=== PATIENT | female | born 1935 | race Caucasian/White ===

== ENCOUNTER 2019-08-22 06:24 | Inpatient (IN) | payer MEDICARE ==
[~2019-08-22] VITALS: Ht 165.1 cm; Wt 63.7 kg
[~2019-08-22 06:24] MED LIST: ALBU90OI INH; ATEN25 PO; AZIT250 PO; CODACE30 PO; ESTR2 PO; HYDGUAL120 PO; LEVSOD125 PO; LEVSOD25; LOVA20 PO; PARO10; SULTRISS PO
[2019-08-22 07:18] LABS: BASOPHILS ABSOLUTE AUTO 0.02 K/mm3 (0.00-0.23); BASOPHILS PERCENT AUTO 0 % (0-2); EOSINOPHILS ABSOLUTE AUTO 0.07 K/mm3 (0.00-0.68); EOSINOPHILS PERCENT AUTO 1 % (0-6); Hematocrit 40.7 % (33.0-51.0); Hemoglobin 12.6 g/dL (11.5-16.0); IMMATURE GRAN PERCENT AUTO 0 % (0-1); LYMPHOCYTES ABSOLUTE AUTO 0.68 K/mm3 (0.84-5.20); LYMPHOCYTES PERCENT AUTO 13 % (21-46); MONOCYTES ABSOLUTE AUTO 0.31 K/mm3 (0.16-1.47); MONOCYTES PERCENT AUTO 6 % (4-13); Mean Corpuscular HGB 28.6 pg (26.0-34.0); Mean Corpuscular Volume 92 fL (80-100); Mean Platelet Volume 10.3 fL (9.1-12.4); NEUTROPHILS ABSOLUTE AUTO 4.06 K/mm3 (1.96-9.15); NEUTROPHILS PERCENT AUTO 79 % (41-73); Platelet Count 167 K/mm3 (150-400); RDW Coefficient Variation 14.6 % (11.7-14.2); RDW Standard Deviation 49.8 fL (35.1-46.3); Red Blood Cell Count 4.41 M/mm3 (3.80-5.20); White Blood Cell Count 5.14 K/mm3 (4.00-11.30)
[2019-08-22 07:27] LABS: Alanine Aminotransfer (ALT/SGP 63 U/L (12-78); Albumin, Blood 3.8 g/dL (3.4-5.0); Albumin/Globulin Ratio 1.1 (0.8-1.8); Alk Phos 83 U/L (50-136); Anion Gap 5 mmol/L (6-16); Aspartate Aminotrans (AST/SGOT 78 U/L (12-37); Bilirubin, Total 0.6 mg/dL (0.1-1.0); Blood Urea Nitrogen 27 mg/dL (8-24); Bun/Creatinine Ratio 30.8 (12.0-20.0); CO2, Blood 29 mmol/L (21-32); Calcium, Blood 8.8 mg/dL (8.5-10.1); Chloride, Blood 108 mmol/L (98-108); Creatinine, Blood 0.88 mg/dL (0.40-1.00); Globulin, Blood 3.5 g/dL (2.2-4.0); Glomerular Filtration Rate >60 (60-); Glucose, Blood 117 mg/dL (70-99); Potassium, Blood 4.5 mmol/L (3.5-5.5); Sodium, Blood 142 mmol/L (136-145); Total Protein, Blood 7.3 g/dL (6.4-8.2)
[2019-08-22 09:17] LABS: Magnesium, Blood 2.1 mg/dL (1.6-2.4)
[2019-08-22 09:19] LABS: Thyroid Stimulating Hormone 30.3 uIU/mL (0.360-4.800)
[2019-08-22 10:02] LABS: Free Thyroxine 1.02 ng/dL (0.70-1.60)
[2019-08-22 10:03] LABS: Triiodothyronine, Free 1.32 pg/mL (2.18-3.98)
--- NOTE | 2019-08-22 10:34 | NUR ---
Echocardiogram completed. Stat Overread requested.
--- NOTE | 2019-08-22 11:21 | NUR ---
Called to meet with pt in ER. pt alert oreinted to place time. pt unable to recall her street. She rents a home in [place] and has a dog. 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 We slowly reviewed her qulaity of life and if she would want to seek a consult on getting surgery. She stated she has it looked at treament before. She has not went to a doctor in [facility] and did not want surgery. She spoke of getting older and how tough it is. Se is well aware that she is loosing her memory. We had some diversion and spoke of her youth and growing up in [facility]. We also share stores of the adventures of [employer] in the medical profession. Pt speaks in four to five words with some wheezing and mild labor. She has to void frequently and gets aggitated. Will attempt to get her to accept catheter. Called Ralph Caballero regarding our conversation. relayed to him that she needs support in making this decision and discussed hospice. Ralph states he is her executer and her support person. He states she made a POLST and would not want life support or surgery and wants DNR. He states she need caregiver help or placement. will notify care managers.
--- NOTE | 2019-08-22 12:13 | NUR ---
ARRIVAL TO ICU PT. ARRIVES ON 2L NC. PT. ALERT AND ORIENTED UPON ARRIVAL ABLE TO TRANSER SELF TO ICU BED WITH OUT DIFFICULTY. NO SOB NOTED, PT DENIES DYSPNEA. VSS UPON ARRIVAL. PT. UP TO BEDSIDE COMMODE UPON ARRIVAL TO VOID, 400CC DOCUMENTED. PT DENIES PAIN UPON ARRIVAL. NON PITTING EDEMA 2+ TO BILAT LE. PT. SALINE LOCKED. CALL LIGHT IN REACH, BED IN LOW POSITION. BED ALARM ON FOR SAFETY.
--- NOTE | 2019-08-22 12:53 | NUR ---
CARE ASSUMED CARE ASSUMED AT THIS TIME. PT IN NO ACUTE DISTRESS AT THIS TIME. SPO2 95% ON 2L NC.
[2019-08-22 16:21] LABS: Alanine Aminotransfer (ALT/SGP 52 U/L (12-78); Albumin, Blood 3.5 g/dL (3.4-5.0); Albumin/Globulin Ratio 1.1 (0.8-1.8); Alk Phos 65 U/L (50-136); Anion Gap 2 mmol/L (6-16); Aspartate Aminotrans (AST/SGOT 51 U/L (12-37); Bilirubin, Total 0.9 mg/dL (0.1-1.0); Blood Urea Nitrogen 27 mg/dL (8-24); CO2, Blood 32 mmol/L (21-32); Calcium, Blood 8.8 mg/dL (8.5-10.1); Chloride, Blood 105 mmol/L (98-108); Creatinine, Blood 0.87 mg/dL (0.40-1.00); Globulin, Blood 3.3 g/dL (2.2-4.0); Glomerular Filtration Rate >60 (60-); Glucose, Blood 100 mg/dL (70-99); Potassium, Blood 4.4 mmol/L (3.5-5.5); Sodium, Blood 139 mmol/L (136-145); Total Protein, Blood 6.8 g/dL (6.4-8.2)
--- NOTE | 2019-08-22 17:23 | NUR ---
TRANSFER REPORT CALLED AND GIVEN TO RG ON 3RD FLOOR. PT TO BE TRANSFERRED TO ROOM 306.
--- NOTE | 2019-08-22 18:27 | NUR ---
ARRIVES TO FLOOR ABOUT 1735 VIA W/C FROM ICU. ALERT. ORIENTED. NO OXYGEN. SPEAKS IN COMPLETE SENTENCES. BLE EDEMA +1 TO +2 W/LEFT >RIGHT. LUNGS WHEEZEY TO COARSE RLL WITH REST CLEAR T/O. TELE ON AND SHOWING SB IN 50'S PER MARKO. MULTIPLE SMALL SCRATCHES TO BACK. SITS UP IN CHAIR FOR DINNER. STEADY GAIT IN ROOM. ADVISED TO LET US KNOW IF HAS TO USE REST ROOM SO WE CAN MAKE SURE DOES NOT FALL. HAT ON TOILET TO MEASURE OUTPUT. ABLE TO MAKE NEEDS KNOWN. TM
--- NOTE | 2019-08-23 03:33 | NUR ---
SHIFT SUMMARY PATIENT HAD NO ACUTE CHANGES OBSERVED. AXOX 3 AND FORGETFUL AT TIMES. SBA TO BR. PIV REMAINS INTACT. ACADEMIC AFFAIRS DIRECTOR REPORTS SR 65 W/1ST DEGREE, BBB. DENIES PAIN, SOB, AND N/V. ON ROOM AIR. TAKES MEDICATION WHOLE WITH WATER. AFEBRILE. COOPERATIVE WITH CARE. CALL LIGHT IN REACH. BED IN LOWEST POSITION. WILL CONTINUE TO MONITOR UNTIL DAY SHIFT NURSE ASSUMES CARE.
[2019-08-23 05:07] LABS: BASOPHILS ABSOLUTE AUTO 0.01 K/mm3 (0.00-0.23); BASOPHILS PERCENT AUTO 0 % (0-2); EOSINOPHILS ABSOLUTE AUTO 0.13 K/mm3 (0.00-0.68); EOSINOPHILS PERCENT AUTO 3 % (0-6); Hematocrit 40.4 % (33.0-51.0); Hemoglobin 12.8 g/dL (11.5-16.0); IMMATURE GRAN ABSOLUTE AUTO 0.01 K/mm3 (0.00-0.10); IMMATURE GRAN PERCENT AUTO 0 % (0-1); LYMPHOCYTES ABSOLUTE AUTO 1.33 K/mm3 (0.84-5.20); LYMPHOCYTES PERCENT AUTO 32 % (21-46); MONOCYTES ABSOLUTE AUTO 0.42 K/mm3 (0.16-1.47); MONOCYTES PERCENT AUTO 10 % (4-13); Mean Corpuscular HGB 29.3 pg (26.0-34.0); Mean Corpuscular HGB Conc 31.7 g/dL (31.5-36.5); Mean Corpuscular Volume 92 fL (80-100); Mean Platelet Volume 10.3 fL (9.1-12.4); NEUTROPHILS ABSOLUTE AUTO 2.26 K/mm3 (1.96-9.15); NEUTROPHILS PERCENT AUTO 54 % (41-73); Platelet Count 158 K/mm3 (150-400); RDW Coefficient Variation 14.7 % (11.7-14.2); RDW Standard Deviation 49.9 fL (35.1-46.3); Red Blood Cell Count 4.37 M/mm3 (3.80-5.20); White Blood Cell Count 4.16 K/mm3 (4.00-11.30)
[2019-08-23 05:29] LABS: Albumin, Blood 3.6 g/dL (3.4-5.0); Albumin/Globulin Ratio 1.2 (0.8-1.8); Bun/Creatinine Ratio 28.4 (12.0-20.0); Calcium, Blood 8.6 mg/dL (8.5-10.1); Creatinine, Blood 0.95 mg/dL (0.40-1.00); Globulin, Blood 3.1 g/dL (2.2-4.0); Potassium, Blood 4.1 mmol/L (3.5-5.5); Total Protein, Blood 6.7 g/dL (6.4-8.2)
[2019-08-23] MEDS ORDERED: ACET325 PO (11:42)
[2019-08-23] MEDS ORDERED: ATOR20 PO (11:42)
[2019-08-23] MEDS ORDERED: CO Q10100 MG PO (11:43)
[2019-08-23] MEDS ORDERED: FURO20 PO (11:43)
[2019-08-23] MEDS ORDERED: METO25ER PO (11:44)
[2019-08-23] MEDS ORDERED: Prinivil10 MG PO (11:44)
--- NOTE | 2019-08-23 13:31 | NUR ---
DISCHARGE NOTE PT DISCHARGED AMBULATORY POV WITH FRIEND. KRISTOPHER Pizarro PALLIATIVE CARE SPOKE WITH PATIENT AND FRIEND PRIOR TO DISCHARGE ABOUT HOME HEALTH AND HOSPICE. IV DISCONTINUED INTACT. PT VERBALIZED UNDERSTANDING OF MEDICATIONS AND DISCHARGE INSTRUCTIONS AND PROVIDED WITH A PAPER RX FOR A HOME BP MONITOR. ENCOURAGED TO RETURN TO THE HOSPITAL OR SEEK MEDICAL ASSISTANCE IF SYMPTOMS RETURN OR WORSEN.
--- NOTE | 2019-08-23 16:03 | NUR ---
met with patient and her POA. plan is to discharge home on hospice. pt POA has used [facility] and requested their service. hospice liason notified.
== END 2019-08-23 13:28 | disposition hospice, home (50) | DRG 291 ==
LOC: ER 06:24 → MEDS 10:11 → PCU 10:11 → ICUE 10:11 → MEDS 11:40 → ICUE 15:31 → MEDS 17:29
PROVIDERS: Emergency Medicine; Nurse Practitioner Acute Care; ADMIT Internal Medicine
DX: I11.0 Hypertensive heart disease with heart failure (principal); J96.01 Acute respiratory failure with hypoxia; I50.9 Heart failure, unspecified; I71.2 Thoracic aortic aneurysm, without rupture; J44.9 Chronic obstructive pulmonary disease, unspecified; E89.0 Postprocedural hypothyroidism; I48.0 Paroxysmal atrial fibrillation; F41.1 Generalized anxiety disorder; F17.210 Nicotine dependence, cigarettes, uncomplicated; Z66 Do not resuscitate; Z88.0 Allergy status to penicillin; Z88.2 Allergy status to sulfonamides; Z51.5 Encounter for palliative care
CPT/HCPCS: 36415; 71046; 80053; 82550; 83735; 83880; 84439; 84443; 84481; 84484; 85025; 90686; 93005; 93010; 93306; 94640; 94760; 96374; 96375; 99285-25; G0008; J1650; J1940; J2060

== ENCOUNTER → 2020-02-21 | Outpatient (CLI) | payer MEDICARE, OTHER ==
[~2020-02-21] MED LIST changes: +ACET325 PO; +ATOR20 PO; +CO Q10100 MG PO; +FURO20 PO; +METO25ER PO; +Prinivil10 MG PO
[2020-02-21 19:53] LABS: Free Thyroxine 0.32 ng/dL (0.70-1.60)
[2020-02-21 20:25] LABS: Albumin, Blood 4.1 g/dL (3.4-5.0); Albumin/Globulin Ratio 1.4 (0.8-1.8); Bilirubin, Total 0.6 mg/dL (0.1-1.0); Bun/Creatinine Ratio 18.3 (12.0-20.0); Calcium, Blood 8.5 mg/dL (8.5-10.1); Creatinine, Blood 1.2 mg/dL (0.40-1.00); Globulin, Blood 2.9 g/dL (2.2-4.0); Potassium, Blood 3.9 mmol/L (3.5-5.5)
== END | disposition home or self-care (01) ==
LOC: LAB SHORT 17:15 → LAB 17:15
PROVIDERS: Internal Medicine Hematology & Oncology
DX: Z00.00 Encounter for general adult medical examination without abnormal findings (principal); E03.9 Hypothyroidism, unspecified; D51.8 Other vitamin B12 deficiency anemias; R41.3 Other amnesia
CPT/HCPCS: 80053; 82607; 82746; 84439; 84443

== ENCOUNTER 2021-04-28 20:01 | Emergency (ER) | payer MEDICARE ==
[~2021-04-28] VITALS: Ht 170.2 cm; Wt 59.0 kg
[2021-04-28 20:37] LABS: BASOPHILS ABSOLUTE AUTO 0.01 K/mm3 (0.00-0.23); BASOPHILS PERCENT AUTO 0 % (0-2); EOSINOPHILS ABSOLUTE AUTO 0.11 K/mm3 (0.00-0.68); EOSINOPHILS PERCENT AUTO 2 % (0-6); Hematocrit 35.4 % (33.0-51.0); Hemoglobin 11.6 g/dL (11.5-16.0); IMMATURE GRAN ABSOLUTE AUTO 0.02 K/mm3 (0.00-0.10); IMMATURE GRAN PERCENT AUTO 0 % (0-1); LYMPHOCYTES ABSOLUTE AUTO 0.74 K/mm3 (0.84-5.20); LYMPHOCYTES PERCENT AUTO 14 % (21-46); MONOCYTES PERCENT AUTO 9 % (4-13); Mean Corpuscular HGB 29.2 pg (26.0-34.0); Mean Corpuscular HGB Conc 32.8 g/dL (31.5-36.5); Mean Corpuscular Volume 89 fL (80-100); Mean Platelet Volume 10.3 fL (9.1-12.4); NEUTROPHILS PERCENT AUTO 75 % (41-73); Platelet Count 202 K/mm3 (150-400); RDW Coefficient Variation 14.4 % (11.7-14.2); RDW Standard Deviation 46.6 fL (35.1-46.3); Red Blood Cell Count 3.97 M/mm3 (3.80-5.20); White Blood Cell Count 5.48 K/mm3 (4.00-11.30)
[2021-04-28 20:58] LABS: Albumin, Blood 3.9 g/dL (3.4-5.0); Albumin/Globulin Ratio 1.1 (0.8-1.8); Bilirubin, Total 0.6 mg/dL (0.1-1.0); Bun/Creatinine Ratio 37.2 (12.0-20.0); Calcium, Blood 8.2 mg/dL (8.5-10.1); Creatinine, Blood 1.83 mg/dL (0.40-1.00); Globulin, Blood 3.7 g/dL (2.2-4.0); Potassium, Blood 4.5 mmol/L (3.5-5.5); Total Protein, Blood 7.6 g/dL (6.4-8.2); Troponin I 0.033 ng/mL (0.000-0.040)
[2021-04-28] MEDS ORDERED: LOVASTATIN20 MG PO (22:08)
[2021-04-28] MEDS ORDERED: BUME2 PO (22:08)
[2021-04-28] MEDS ORDERED: ATENOLOL25 MG PO (22:09)
== END 2021-04-29 00:43 | disposition home or self-care (01) ==
LOC: ER 20:01
PROVIDERS: Physician Assistant
DX: R55 Syncope and collapse (principal); Z79.899 Other long term (current) drug therapy
CPT/HCPCS: 36415; 70450; 71045; 80053; 84484; 85025; 93005; 93010; 99284-25; J7030

== ENCOUNTER 2021-09-01 00:42 | Inpatient (IN) | payer MEDICARE ==
[~2021-09-01] VITALS: Ht 167.6 cm; Wt 56.7 kg
[~2021-09-01 00:42] MED LIST changes: +ATENOLOL25 MG PO; +BUME2 PO; +LOVASTATIN20 MG PO
[2021-09-01 01:10] LABS: BASOPHILS ABSOLUTE AUTO 0.02 K/mm3 (0.00-0.23); BASOPHILS PERCENT AUTO 0 % (0-2); EOSINOPHILS ABSOLUTE AUTO 0.25 K/mm3 (0.00-0.68); EOSINOPHILS PERCENT AUTO 3 % (0-6); Hematocrit 32.5 % (33.0-51.0); Hemoglobin 10.2 g/dL (11.5-16.0); IMMATURE GRAN ABSOLUTE AUTO 0.02 K/mm3 (0.00-0.10); IMMATURE GRAN PERCENT AUTO 0 % (0-1); LYMPHOCYTES ABSOLUTE AUTO 2.28 K/mm3 (0.84-5.20); LYMPHOCYTES PERCENT AUTO 30 % (21-46); MONOCYTES PERCENT AUTO 7 % (4-13); Mean Corpuscular HGB 30.1 pg (26.0-34.0); Mean Corpuscular HGB Conc 31.4 g/dL (31.5-36.5); Mean Corpuscular Volume 96 fL (80-100); Mean Platelet Volume 9.9 fL (9.1-12.4); NEUTROPHILS ABSOLUTE AUTO 4.64 K/mm3 (1.96-9.15); NEUTROPHILS PERCENT AUTO 60 % (41-73); Platelet Count 207 K/mm3 (150-400); RDW Coefficient Variation 14.3 % (11.7-14.2); RDW Standard Deviation 50.7 fL (35.1-46.3); Red Blood Cell Count 3.39 M/mm3 (3.80-5.20); White Blood Cell Count 7.71 K/mm3 (4.00-11.30)
[2021-09-01 01:14] LABS: PCO2 Arterial 57.8 mmHg (35-45); PO2 Arterial 69.6 mmHg (80-100); pH Blood Arterial 7.33 (7.35-7.45)
[2021-09-01 01:30] LABS: Albumin, Blood 3.6 g/dL (3.4-5.0); Bilirubin, Total 0.6 mg/dL (0.1-1.0); Bun/Creatinine Ratio 26.2 (12.0-20.0); Calcium, Blood 9.2 mg/dL (8.5-10.1); Creatinine, Blood 1.22 mg/dL (0.40-1.00); Globulin, Blood 3.6 g/dL (2.2-4.0); Potassium, Blood 4.2 mmol/L (3.5-5.5); Total Protein, Blood 7.2 g/dL (6.4-8.2); Troponin I 0.098 ng/mL (0.000-0.040)
[2021-09-01 03:36] LABS: Influenza A, PCR NEGATIVE (NEGATIVE); Influenza B, PCR NEGATIVE (NEGATIVE); Resp Syncytial Virus, PCR NEGATIVE (NEGATIVE); SARS-Cov-2 (COVID-19) PCR, MMC NEGATIVE (NEGATIVE)
[2021-09-01 05:39] LABS: BASOPHILS ABSOLUTE AUTO 0.01 K/mm3 (0.00-0.23); BASOPHILS PERCENT AUTO 0 % (0-2); EOSINOPHILS ABSOLUTE AUTO 0.02 K/mm3 (0.00-0.68); EOSINOPHILS PERCENT AUTO 0 % (0-6); Hematocrit 28.5 % (33.0-51.0); Hemoglobin 9.1 g/dL (11.5-16.0); IMMATURE GRAN ABSOLUTE AUTO 0.02 K/mm3 (0.00-0.10); IMMATURE GRAN PERCENT AUTO 0 % (0-1); LYMPHOCYTES ABSOLUTE AUTO 0.26 K/mm3 (0.84-5.20); LYMPHOCYTES PERCENT AUTO 5 % (21-46); MONOCYTES ABSOLUTE AUTO 0.35 K/mm3 (0.16-1.47); MONOCYTES PERCENT AUTO 7 % (4-13); Mean Corpuscular HGB 30.2 pg (26.0-34.0); Mean Corpuscular HGB Conc 31.9 g/dL (31.5-36.5); Mean Corpuscular Volume 95 fL (80-100); Mean Platelet Volume 9.6 fL (9.1-12.4); NEUTROPHILS ABSOLUTE AUTO 4.37 K/mm3 (1.96-9.15); NEUTROPHILS PERCENT AUTO 87 % (41-73); Platelet Count 132 K/mm3 (150-400); RDW Coefficient Variation 14.2 % (11.7-14.2); RDW Standard Deviation 48.8 fL (35.1-46.3); Red Blood Cell Count 3.01 M/mm3 (3.80-5.20); White Blood Cell Count 5.03 K/mm3 (4.00-11.30)
[2021-09-01 06:27] LABS: Albumin, Blood 3.3 g/dL (3.4-5.0); Albumin/Globulin Ratio 1.1 (0.8-1.8); Bilirubin, Total 0.6 mg/dL (0.1-1.0); Calcium, Blood 8.6 mg/dL (8.5-10.1); Creatinine, Blood 1.23 mg/dL (0.40-1.00); Globulin, Blood 2.9 g/dL (2.2-4.0); Potassium, Blood 3.9 mmol/L (3.5-5.5); Total Protein, Blood 6.2 g/dL (6.4-8.2); Troponin I 0.244 ng/mL (0.000-0.040)
[2021-09-01 13:49] LABS: Troponin I 0.37 ng/mL (0.000-0.040)
--- NOTE | 2021-09-01 17:15 | NUR ---
Echocardiogram completed.
--- NOTE | 2021-09-01 18:00 | NUR ---
INITIAL ASSESSMENT: Patient arrived from the ER to PCU 13 via gurney, she was able to ambulate to the bed. She is alert to self, she is unable to tell me what town we are in and who the president is. She denies pain, except for when I am palpating her pedal pulses and checking for edema, she states her legs are chronically sensitive. HRR. LS dim in the bases, biox 95% on 2l via NC. Patient has home O2 dose is 4l via NC. BT+. PPP. Patient has 2+ pitting edema to BLE. VSS. Admission HX and medication list completed by Ashly PARNELL. Patient oriented to room and call light. Call light in reach, will contiue to monitor.
--- NOTE | 2021-09-01 23:43 | NUR ---
1140 PT NOT TOLERATING BIPAP, PULLED IT OFF, ANXIOUS AND CUSSING AT STAFF. PLACED BACK ON N/C, SATS >95% BOTH ON BIPAP AND NC. EMOTIONAL SUPPORT GIVEN. SANDRO PHIPPS
[2021-09-02 04:22] LABS: Hematocrit 28.4 % (33.0-51.0); Mean Corpuscular HGB 29.6 pg (26.0-34.0); Mean Corpuscular HGB Conc 31.7 g/dL (31.5-36.5); Mean Corpuscular Volume 93 fL (80-100); Mean Platelet Volume 10.3 fL (9.1-12.4); Platelet Count 146 K/mm3 (150-400); RDW Coefficient Variation 14.2 % (11.7-14.2); RDW Standard Deviation 48.6 fL (35.1-46.3); Red Blood Cell Count 3.04 M/mm3 (3.80-5.20)
[2021-09-02 05:01] LABS: Albumin, Blood 3.3 g/dL (3.4-5.0); Anion Gap 6 mmol/L (6-16); Blood Urea Nitrogen 42 mg/dL (8-24); Bun/Creatinine Ratio 27.3 (12.0-20.0); CO2, Blood 33 mmol/L (21-32); Calcium, Blood 8.5 mg/dL (8.5-10.1); Chloride, Blood 100 mmol/L (98-108); Creatinine, Blood 1.54 mg/dL (0.40-1.00); Glomerular Filtration Rate 32 (60-); Glucose, Blood 91 mg/dL (70-99); Phosphorus, Blood 4.2 mg/dL (2.5-4.9); Potassium, Blood 4.4 mmol/L (3.5-5.5); Sodium, Blood 139 mmol/L (136-145)
--- NOTE | 2021-09-02 05:55 | NUR ---
SHIFT SUMMARY: PT RESTING OCCASIONALLY BUT IN GENERAL GOT LITTLE REST OVERNIGHT. GOT VERY IRRITABLE AND BELIGERANT WITH DIFFERENT STAFF MEMBERS THROUGHOUT NIGHT. CONFUSED TO TIME AND PLACE, REORIENTED FREQ, BED ALARM ACTIVATED PT IS FORGETFUL AND NOT USING CALL LIGHT. CONTINENT OF BOWEL AND BLADDER, BECOMES DYSPNIC AND SOB WITH ACTIVITY OR EMOTIONAL UPSET. TELE SHOWS SR 1*AVB, VVS, BP'S SOFT, ASYMPTOMATIC. APPETITE GOOD AND ASKING FOR SNACKS AND FOOD FREQUENTLY. BED LOCKED AND LOW, CALL LOMAX IN REACH. SANDRO GUILLEN
--- NOTE | 2021-09-02 15:50 | NUR ---
PT ARRIVED TO ROOM 344 VIA W/C FROM PCU 13. TOLERATED WELL. ABLE TO STAND AND TRANSFER TO BED. STAND BY ASSIST REQUIRED. DENIES PAIN AND DISCOMFORT. LOOKING FORWARD TO GOING HOME TOMORROW. TELE IS SR, NO CHEST PAIN. CALL LOMAX IN REACH, WILL CONTINUE TO MONITOR
--- NOTE | 2021-09-02 17:32 | NUR ---
NO CHANGES SINCE ARRIVAL TO ROOM, BED IN LOWEST POSITION AND CALL LOMAX IN REACH, WILL CONTINUE TO MONITOR AND REPORT TO ONCOMING RN
--- NOTE | 2021-09-03 04:40 | NUR ---
SUMMARY PT HAD NOTED INCREASED ANXIETY AND AGITATION. DR CHEUNG CALLED AND HALDOL WAS ORDERED. AGITAION DID NOT RESOLVE. PT CONTINUES TO BE FORGETFUL AND CONFRONTATIONAL AT TIMES. PT IS IMPULSIVE AND FAILS TO USE CALL LIGHT FOR ASSISTANCE. PT SLEPT OFF AND ON. PT HAS BEEN VOIDING FREQUENTLY T/O SHIFT. PT CURRENTLY AWAKE AND SITTING IN CHAIR IN NO DISTRESS. CALL LIGHT IN REACH AND CHAIR ALARM ON.
[2021-09-03 08:27] LABS: BASOPHILS ABSOLUTE AUTO 0.02 K/mm3 (0.00-0.23); BASOPHILS PERCENT AUTO 1 % (0-2); EOSINOPHILS ABSOLUTE AUTO 0.14 K/mm3 (0.00-0.68); EOSINOPHILS PERCENT AUTO 4 % (0-6); Hematocrit 30.6 % (33.0-51.0); IMMATURE GRAN PERCENT AUTO 0 % (0-1); LYMPHOCYTES ABSOLUTE AUTO 0.65 K/mm3 (0.84-5.20); LYMPHOCYTES PERCENT AUTO 18 % (21-46); MONOCYTES PERCENT AUTO 8 % (4-13); Mean Corpuscular HGB 30.1 pg (26.0-34.0); Mean Corpuscular HGB Conc 32.7 g/dL (31.5-36.5); Mean Corpuscular Volume 92 fL (80-100); Mean Platelet Volume 10.3 fL (9.1-12.4); NEUTROPHILS ABSOLUTE AUTO 2.52 K/mm3 (1.96-9.15); NEUTROPHILS PERCENT AUTO 69 % (41-73); Platelet Count 151 K/mm3 (150-400); RDW Coefficient Variation 14.2 % (11.7-14.2); RDW Standard Deviation 47.8 fL (35.1-46.3); Red Blood Cell Count 3.32 M/mm3 (3.80-5.20); White Blood Cell Count 3.63 K/mm3 (4.00-11.30)
[2021-09-03 09:13] LABS: Albumin, Blood 3.5 g/dL (3.4-5.0); Anion Gap 5 mmol/L (6-16); Blood Urea Nitrogen 46 mg/dL (8-24); Bun/Creatinine Ratio 30.1 (12.0-20.0); CO2, Blood 34 mmol/L (21-32); Chloride, Blood 99 mmol/L (98-108); Creatinine, Blood 1.53 mg/dL (0.40-1.00); Ferritin, Serum 108 ng/mL (8-252); Glomerular Filtration Rate 32 (60-); Glucose, Blood 100 mg/dL (70-99); Iron Serum 52 ug/dL (50-170); Percent Saturation 15.8 % (15.0-50.0); Phosphorus, Blood 4.2 mg/dL (2.5-4.9); Potassium, Blood 4.2 mmol/L (3.5-5.5); Sodium, Blood 138 mmol/L (136-145); Total Iron Binding Capacity 329 ug/dL (250-450)
--- NOTE | 2021-09-03 12:20 | NUR ---
Met with pt this morning, she continues to exhibit anxiety about being here instead of at home, however she does realize she needs treatment to improve her breathing. She continues to voice concern about being away from her dog, but her friend Ralph received permission after staff intervened to bring in the dog for a visit today. Hopeful that this will help with her anxiety. This RN is concerned about pt's ability to care for herself after speaking with pt's friends, Antonia and Ralph. Antonia tells me they take pt gocery shopping, to doctor appts, etc. And according to Antonia, pt has become more forgetful recently--as in forgetting to feed herself and/or her dog, and forgetting to take her medications. I will touch base with Dr. Chi and Rosi Spencer, Food Service Employee.
--- NOTE | 2021-09-03 17:36 | NUR ---
SHIFT SUMMARY PT AAOX3, FORGETFUL AND ANXIOUS AT TIMES. COOPERATIVE TO CARE. NO C/O PAIN THIS SHIFT. DENIES CP, SOB, OR N&V. PT REMAINS ON O2 4LPM NC SATS >92%. PT WORKED WITH THERAPY THIS SHIFT, PT AMBULATES WITH A FWW W/ SBA. PT SITTING IN RECLINER AT THIS TIME WITH CHAIR ALARM IN PLACE. CALL LIGHT WITHIN REACH.
--- NOTE | 2021-09-04 05:13 | NUR ---
NIGHT SHIFTT SUMMARY NO ACUTE CHANGES WITH PATIENT. PATIENT SAT IN CHAIR WITH CHAIR ALARM ON.PATIENT HAD MILD AGITATION BUT WAS REDIRECTABLE. PATIENT DENIES PAIN AND SHORTNESS OF BREATH, REMAINED ON 2L ALL NIGHT
[2021-09-04 07:03] LABS: Albumin, Blood 3.2 g/dL (3.4-5.0); Anion Gap 5 mmol/L (6-16); Blood Urea Nitrogen 50 mg/dL (8-24); Bun/Creatinine Ratio 26.3 (12.0-20.0); CHOL/HDL RATIO 2.6; CO2, Blood 36 mmol/L (21-32); Calcium, Blood 8.8 mg/dL (8.5-10.1); Chloride, Blood 98 mmol/L (98-108); Cholesterol 185 mg/dL (50-200); Glomerular Filtration Rate 25 (60-); Glucose, Blood 93 mg/dL (70-99); HDL Cholesterol 72 mg/dL (>39); LDL/HDL RATIO 1.4; Low Density Lipoprotein Chol 102 mg/dL (0-110); Potassium, Blood 4.7 mmol/L (3.5-5.5); Sodium, Blood 139 mmol/L (136-145); Triglycerides 53 mg/dL (30-160); Very Low Density Lipoprot Chol 10 mg/dL (6-32)
--- NOTE | 2021-09-04 16:49 | NUR ---
SHIFT SUMMARY PT HAS BEEN INDEPENDENT IN ROOM TODAY. PACING ON AND OFF. REPORTS IT HAS HELPED HER ANXIETY TO BE ABLE TO GET UP AND MOVE WITHOUT RESTRICTION. HAS APPEARED TO BE STABLE ON HER FEET. FRIEND BROUGHT PTS DOG IN TO VISIT AND PT SEEMED MUCH MORE [place] AFTER VISIT. HAS CAME OUT AND AMBULATED IN HALLWAY A COUPLE TIMES WELL AND TOLERATED WELL. ENCOURAGED TO ELEVATE LE'S BUT WOULD ONLY KEEP THEM UP FOR SHORT PERIODS OF TIME. APPEARS TO HAVE LESS EPISODES OF SOB. DOES REMOVE HER O2 FOR UP TO 30 MINUTES AT A TIME AND NEEDS REMINDING TO PUT BACK ON. DECREASED TO 2L/M.
--- NOTE | 2021-09-05 04:54 | NUR ---
GAS REGULATOR REPAIRER SUMMARY PT AAOX3 AND INDEPENDENT IN ROOM. FORGETFUL AT TIMES BUT EASILY REORIENTED. TITRATED O2 DOWN TO RA TONIGHT, O2 SATS MID TO HIGH 90'S. PT AWAKE MOST OF THE NIGHT. MEDICATED WITH TYLENOL FOR SOME BACK PAIN, PT ABLE TO SLEEP AFTERWARD. VSS, WILL CONTINUE TO MONITOR.
[2021-09-05 05:36] LABS: Hematocrit 29.8 % (33.0-51.0); Hemoglobin 9.6 g/dL (11.5-16.0); Mean Corpuscular HGB 30.6 pg (26.0-34.0); Mean Corpuscular HGB Conc 32.2 g/dL (31.5-36.5); Mean Corpuscular Volume 95 fL (80-100); Mean Platelet Volume 10.2 fL (9.1-12.4); Platelet Count 149 K/mm3 (150-400); RDW Coefficient Variation 14.2 % (11.7-14.2); RDW Standard Deviation 49.7 fL (35.1-46.3); Red Blood Cell Count 3.14 M/mm3 (3.80-5.20); White Blood Cell Count 4.35 K/mm3 (4.00-11.30)
[2021-09-05 06:20] LABS: Albumin, Blood 3.8 g/dL (3.4-5.0); Anion Gap 8 mmol/L (6-16); Blood Urea Nitrogen 57 mg/dL (8-24); CO2, Blood 30 mmol/L (21-32); Chloride, Blood 100 mmol/L (98-108); Creatinine, Blood 1.84 mg/dL (0.40-1.00); Glomerular Filtration Rate 26 (60-); Glucose, Blood 100 mg/dL (70-99); Phosphorus, Blood 5.6 mg/dL (2.5-4.9); Potassium, Blood 4.3 mmol/L (3.5-5.5); Sodium, Blood 138 mmol/L (136-145)
--- NOTE | 2021-09-05 07:30 | NUR ---
ASSUMED CARE: PT AMBULATORY IN [place], TALKING TO STAFF. PLEASANT AND COOPERATIVE. CONFUSED AT TIMES BUT EASILY REDIRECTED. TELE IN PLACE, NSR WITH PVCS AND BBB, HR 86. NO ACUTE NEEDS AT THIS TIME.
--- NOTE | 2021-09-05 13:57 | NUR ---
JELLY MAKER CALLED AND STATED PT WAS OFF TELE. ENTERED ROOM TO FIND PT HAD REMOVED LEADS. SHE STATED THAT THE STICKERS MADE HER SKIN HURT AND SHE WAS AFRAID OF A SKIN INFECTION. CALL TO DR RIOS WHO STATED PT NO LONGER NEEDS TELE. TELE DC'D
--- NOTE | 2021-09-05 14:41 | NUR ---
CALL TO DR MOBLEYTRATE TO ASK ABOUT PLAN FOR PT. STATED HE FELT SHE WASN'T SAFE TO DISCHARGE HOME ALONE. ATTEMPTED TO CALL PT'S FRIEND RITA AND LEFT A MESSAGE. CALL TO DISCHARGE PLANNING WHO STATED SHE WILL SPEAK WITH RITA AND FIND OUT WHAT RESOURCES PT HAS AVAILABLE TO DETERMINE SAFE DISCHARGE PLAN
--- NOTE | 2021-09-05 15:30 | NUR ---
SILVER DESIGNER CAME TO SEE PT AND DISCUSSED RESOURCES WITH PT'S FRIEND RIAT. RACING MECHANIC TO CALL DR RIOS TO LET HIM KNOW OF RESOURCES THAT PT ALREADY HAS AVAIALBLE TO HER
--- NOTE | 2021-09-05 16:25 | NUR ---
MORTGAGE ASSISTANT CALLED BACK AFTER SPEAKING WITH DR RIOS AND STATES HE PLANS TO DISCHARGE PT TOMORROW AFTER REVIEWING LABS. PT AND HER FRIEND RITA MEHTA
--- NOTE | 2021-09-05 18:08 | NUR ---
SHIFT SUMMARY: PT AMBULATORY AND WALKS AROUND IN HALLWAY THROUGHOUT SHIFT. PLAN FOR POTENTIAL DC TOMORROW. PT'S FRIEND RITA AND PT ARE AWARE OF THIS. PT PLEASANT AND COOPERATIVE BUT FORGETFUL AT TIMES. NO ACUTE NEEDS OR CONCERNS.
--- NOTE | 2021-09-05 22:44 | NUR ---
PT UNABLE TO SLEEP AND IS WALKING THE HALLWAY. MEDICATED EARLIER WITH 12.5 OF SEROQUEL WITH SLIGHT INCREASE IN DROWSINESS BUT PT BACK TO AMBULATING IN THE HALLWAY.
--- NOTE | 2021-09-06 04:37 | NUR ---
CREDIT INTERN SUMMARY ADMITTED FOR CHF EXACERBATION. PT IS A DNR. PLAN FOR DC HOME TODAY. PT HAS BEEN UNABLE TO SLEEP AND HAS BEEN UP AND DOWN, WANDERING THE HALLWAY - PT MEDICATED WITH 12.5 MG OF SEROQUEL WITHOUT IMPROVEMENT. PT DEMANDING TO GO HOME TODAY. PT VERY ANXIOUS AND BECAME SOB SO MEDICATED WITH ROXANOL PER DEC - NO IMPROVEMENT. PT BECAME NAUSEOUS AFTER A SANDWICH THIS AM SO MEDICATED WITH ZOFRAN. PT FORGETFUL BUT REDIRECTABLE - DOES GET AGITATED AT TIMES AND HAS CONFUSED SENTENCES.
--- NOTE | 2021-09-06 05:54 | NUR ---
PT COMPLAINING OF BACK PAIN, NAUSEA, AND SOME RIGHT ARM PAIN. PT IS REFUSING EKG. AGREEABLE TO LAB DRAW THIS AM. PT INSISTING ON GOING HOME.
[2021-09-06 06:10] LABS: BASOPHILS ABSOLUTE AUTO 0.02 K/mm3 (0.00-0.23); BASOPHILS PERCENT AUTO 0 % (0-2); EOSINOPHILS ABSOLUTE AUTO 0.16 K/mm3 (0.00-0.68); EOSINOPHILS PERCENT AUTO 4 % (0-6); Hematocrit 30.8 % (33.0-51.0); Hemoglobin 9.9 g/dL (11.5-16.0); IMMATURE GRAN ABSOLUTE AUTO 0.01 K/mm3 (0.00-0.10); IMMATURE GRAN PERCENT AUTO 0 % (0-1); LYMPHOCYTES ABSOLUTE AUTO 0.87 K/mm3 (0.84-5.20); LYMPHOCYTES PERCENT AUTO 19 % (21-46); MONOCYTES ABSOLUTE AUTO 0.43 K/mm3 (0.16-1.47); MONOCYTES PERCENT AUTO 10 % (4-13); Mean Corpuscular HGB 30.3 pg (26.0-34.0); Mean Corpuscular HGB Conc 32.1 g/dL (31.5-36.5); Mean Corpuscular Volume 94 fL (80-100); Mean Platelet Volume 10.1 fL (9.1-12.4); NEUTROPHILS ABSOLUTE AUTO 3.04 K/mm3 (1.96-9.15); NEUTROPHILS PERCENT AUTO 67 % (41-73); Platelet Count 168 K/mm3 (150-400); RDW Coefficient Variation 14.2 % (11.7-14.2); RDW Standard Deviation 49.2 fL (35.1-46.3); Red Blood Cell Count 3.27 M/mm3 (3.80-5.20); White Blood Cell Count 4.53 K/mm3 (4.00-11.30)
[2021-09-06 06:40] LABS: Anion Gap 6 mmol/L (6-16); Blood Urea Nitrogen 70 mg/dL (8-24); Bun/Creatinine Ratio 33.7 (12.0-20.0); CO2, Blood 30 mmol/L (21-32); Calcium, Blood 8.9 mg/dL (8.5-10.1); Chloride, Blood 101 mmol/L (98-108); Creatinine, Blood 2.08 mg/dL (0.40-1.00); Glomerular Filtration Rate 23 (60-); Glucose, Blood 111 mg/dL (70-99); Phosphorus, Blood 5.1 mg/dL (2.5-4.9); Potassium, Blood 4.9 mmol/L (3.5-5.5); Sodium, Blood 137 mmol/L (136-145)
--- NOTE | 2021-09-06 07:06 | NUR ---
ASSUMED CARE: PT SITTING IN RECLINER AT THIS TIME. REPORTED TO NIGHT RN JUST NOW THAT SHE IS NOT HAVING CHEST PAIN AND JUST WANTS TO GO HOME TO SEE DOG. NO NEEDS AT THIS TIME.
--- NOTE | 2021-09-06 07:54 | NUR ---
CALL TO ISTRATE REGARDING PT'S CRITICAL TROPONIN. STATES HE WILL PUT IN ORDERS AND COME TO SEE PT LATER THIS AM. DR AWARE THAT PT IS DENYING CHEST PAIN AT THIS TIME.
--- NOTE | 2021-09-06 09:07 | NUR ---
PT TOLD THIS RN "I KNOW I HAVE A BAD HEART. YOU'RE NOT GOING TO FIX IT." SHE ALSO SAID "I WANT QUALITY, NOT QUANTITY." AND "I JUST WANT TO GO HOME AND BE WITH MY DOG." CALL TO PALLIATIVE CARE TO SEE IF PT QUALIFIES FOR HOSPICE. DISCUSSED WITH SHOE DRESSER. PT SITTING IN HALLWAY, DENIES CHEST PAIN. TROPONIN TRENDING DOWN.
--- NOTE | 2021-09-06 11:03 | NUR ---
Nursing requested a chart review for pt. Current plan is for pt to discharge home with HH services. Nursing is asking if pt would be a hospice candidate. Pt has had 3 ER admissions in the past four years. She has been admitted twice, once in 2018 and again in 2020. Both admissions were for cardiac and respiratory issues related to her CHF. BNP level elevated on both admissions. Creatine level in 2019 was WNL, current creatinine level is 2.08 as of this morning. Troponin levels are elevated currently and trending slightly down. Current weight is 56.7 kg, weight 2 years ago was 63.7 kg (15 pound weight loss in 2 years). Most recent EF was 30-35% in 2019 (was 60% in 2014). Nursing reports new echo has been ordered. progress notes report pt is not interested in having a heart valve replacement. Nursing reports pt is repeatedly voicing her wishes to go home and be with her dog. Reviewed PT notes and pt is able to ambulate independently in the [place] with no SOB or drop in O2 sat during ambulation. She is able to perform personal care. There is concern for pt's poor ST memory issues which have very likely contributed to her admission to the hospital. Pt receives meals on wheels and has an APD caregiver 3 times/week. Her friend Ralph, also assists with checking in on her. Pt would be at high risk for readmission with going home despite having HH and caregivers 3 times per week. Pt would very likely benefit from an assisted living type facility if her dog would be able to go with her. Pt would likely not currently meet hospice criteria unless her kidney function continues to decline, her EF shows worsening and she has a significant decline in her level of functioning and increased symptoms that are difficult to manage. PC to remain available as needed.
--- NOTE | 2021-09-06 11:30 | NUR ---
DR RIOS CAME TO SEE PT AND IS AWARE OF REPEAT TROPONIN RESULT. PT TOLD HIM THAT SHE WANTED TO GO HOME. DR ASKED THIS RN TO SPEAK WITH PT'S FRIEND RITA AND SEE HOW HE FEELS ABOU DISCHARGING PT. RITA AWARE OF INCREASED CARDIAC ENZYMES THIS AM AND AWARE THAT MAXINE JUST WANTS TO GO HOME. RITA STATES MAXINE WOULDN'T WANT PROCEDURES DONE ANYWAY. DR RIOS AWARE AND STATES HE WILL WRITE DC ORDERS.
[2021-09-06] MEDS ORDERED: Acetaminophen650 M1 PO (13:57)
[2021-09-06] MEDS ORDERED: ASPI81CH PO (13:58)
[2021-09-06] MEDS ORDERED: NITR.4SL SL (13:58)
[2021-09-06] MEDS ORDERED: POTCHL20ER PO (13:58)
[2021-09-06] MEDS ORDERED: DOCU100 PO (13:58)
[2021-09-06] MEDS ORDERED: LACT PO (13:59)
[2021-09-06] MEDS ORDERED: SENN187 PO (13:59)
[2021-09-06] MEDS ORDERED: QUET25 PO (13:59)
--- NOTE | 2021-09-06 14:41 | NUR ---
PT'S FRIEND RITA AT BEDSIDE AND WAS GIVEN INSTRUCTIONS REGARDING MEDICATIONS AND FOLLOW UP APPOINTMENTS. MEDICATIONS SENT TO [facility]. DENIES QUESTIONS OR CONCERNS. ESCORTED OUT VIA WHEEL CHAIR BY HOSPITAL STAFF.
--- NOTE | 2021-09-06 15:48 | NUR ---
IV KRISTYN'Efrain SINGHL
== END 2021-09-06 14:16 | disposition home health service (06) | DRG 280 ==
LOC: ER 00:42 → ERHOLD 03:15 → PCU 17:49 → MEDS 09-02 15:46
PROVIDERS: Emergency Medicine; Family Medicine; Internal Medicine; ADMIT Internal Medicine
PROC: 5A09357 Assistance with Respiratory Ventilation, Less than 24 Consecutive Hours, Continuous Positive Airway Pressure (ICD-10-PCS; principal; 2021-09-01)
DX: I13.0 Hypertensive heart and chronic kidney disease with heart failure and stage 1 through stage 4 chronic kidney disease, or unspecified chronic kidney disease (principal); I50.23 Acute on chronic systolic (congestive) heart failure; I21.A1 Myocardial infarction type 2; Z66 Do not resuscitate; J96.02 Acute respiratory failure with hypercapnia; J18.9 Pneumonia, unspecified organism; J96.21 Acute and chronic respiratory failure with hypoxia; N17.9 Acute kidney failure, unspecified; Z20.822 Contact with and (suspected) exposure to COVID-19; I48.0 Paroxysmal atrial fibrillation; N18.30 Chronic kidney disease, stage 3 unspecified; I08.3 Combined rheumatic disorders of mitral, aortic and tricuspid valves; J44.9 Chronic obstructive pulmonary disease, unspecified; D63.8 Anemia in other chronic diseases classified elsewhere; E78.5 Hyperlipidemia, unspecified; E03.9 Hypothyroidism, unspecified; F17.210 Nicotine dependence, cigarettes, uncomplicated; Z88.0 Allergy status to penicillin; Z28.21 Immunization not carried out because of patient refusal; Z91.14 Patient's other noncompliance with medication regimen; Z88.2 Allergy status to sulfonamides; Z79.899 Other long term (current) drug therapy; Z99.81 Dependence on supplemental oxygen; Z90.89 Acquired absence of other organs; Z90.710 Acquired absence of both cervix and uterus
CPT/HCPCS: 0241U; 36415; 36600; 71045; 80053; 80061; 80069; 82550; 82607; 82728; 82746; 82803; 83540; 83550; 83605; 83880; 84145; 84443; 84484; 85025; 85027; 93005; 93010; 93306; 94644; 94660; 94760; 94762; 96372; 96374; 96375; 97116; 97162; 99285-25; A9270; J1630; J1650; J1940; J1956; J2060; J2405; J7040

== ENCOUNTER 2021-10-15 15:23 | Emergency (ER) | payer MEDICARE ==
[~2021-10-15] VITALS: Ht 170.2 cm; Wt 63.5 kg
[~2021-10-15 15:23] MED LIST changes: +ASPI81CH PO; +Acetaminophen650 M1 PO; -BUME2 PO; +BUMETANIDE0.5 M1 PO; +DOCU100 PO; +EUTHYROX175 MCG PO; +LACT PO; -LEVSOD125 PO; +NITR.4SL SL; +POTCHL20ER PO; +QUET25 PO; +SENN187 PO
[2021-10-15 16:15] LABS: BASOPHILS ABSOLUTE AUTO 0.01 K/mm3 (0.00-0.23); BASOPHILS PERCENT AUTO 0 % (0-2); EOSINOPHILS ABSOLUTE AUTO 0.08 K/mm3 (0.00-0.68); EOSINOPHILS PERCENT AUTO 1 % (0-6); Hematocrit 31.4 % (33.0-51.0); Hemoglobin 10.2 g/dL (11.5-16.0); IMMATURE GRAN ABSOLUTE AUTO 0.02 K/mm3 (0.00-0.10); IMMATURE GRAN PERCENT AUTO 0 % (0-1); LYMPHOCYTES ABSOLUTE AUTO 0.42 K/mm3 (0.84-5.20); LYMPHOCYTES PERCENT AUTO 7 % (21-46); MONOCYTES ABSOLUTE AUTO 0.36 K/mm3 (0.16-1.47); MONOCYTES PERCENT AUTO 6 % (4-13); Mean Corpuscular HGB 30.9 pg (26.0-34.0); Mean Corpuscular HGB Conc 32.5 g/dL (31.5-36.5); Mean Corpuscular Volume 95 fL (80-100); Mean Platelet Volume 10.2 fL (9.1-12.4); NEUTROPHILS ABSOLUTE AUTO 5.02 K/mm3 (1.96-9.15); NEUTROPHILS PERCENT AUTO 85 % (41-73); Platelet Count 223 K/mm3 (150-400); RDW Coefficient Variation 14.8 % (11.7-14.2); RDW Standard Deviation 51.2 fL (35.1-46.3); White Blood Cell Count 5.91 K/mm3 (4.00-11.30)
[2021-10-15 16:44] LABS: Troponin I 0.044 ng/mL (0.000-0.040)
[2021-10-15 16:45] LABS: Albumin, Blood 3.2 g/dL (3.4-5.0); Albumin/Globulin Ratio 0.9 (0.8-1.8); Bilirubin, Total 0.4 mg/dL (0.1-1.0); Bun/Creatinine Ratio 35.7 (12.0-20.0); Calcium, Blood 8.3 mg/dL (8.5-10.1); Creatinine, Blood 1.54 mg/dL (0.40-1.00); Globulin, Blood 3.6 g/dL (2.2-4.0); Potassium, Blood 4.4 mmol/L (3.5-5.5); Total Protein, Blood 6.8 g/dL (6.4-8.2)
== END 2021-10-15 19:24 | disposition home or self-care (01) ==
LOC: ER 15:23
PROVIDERS: Physician Assistant
DX: R06.00 Dyspnea, unspecified (principal); R77.8 Other specified abnormalities of plasma proteins; Z88.0 Allergy status to penicillin; Z88.2 Allergy status to sulfonamides; Z79.899 Other long term (current) drug therapy; Z79.82 Long term (current) use of aspirin; I10 Essential (primary) hypertension; E78.5 Hyperlipidemia, unspecified; E03.9 Hypothyroidism, unspecified; J44.9 Chronic obstructive pulmonary disease, unspecified; F17.210 Nicotine dependence, cigarettes, uncomplicated
CPT/HCPCS: 36415; 71046; 80053; 83880; 84484; 85025; 93005; 93010; 99285-25

== ENCOUNTER 2021-10-19 14:48 | Inpatient (IN) | payer MEDICARE ==
[~2021-10-19] VITALS: Ht 170.2 cm; Wt 68.6 kg
[~2021-10-19 14:48] MED LIST changes: +LISI5 PO; -Prinivil10 MG PO
[2021-10-19 15:19] LABS: BASOPHILS ABSOLUTE AUTO 0.01 K/mm3 (0.00-0.23); BASOPHILS PERCENT AUTO 0 % (0-2); EOSINOPHILS ABSOLUTE AUTO 0.02 K/mm3 (0.00-0.68); EOSINOPHILS PERCENT AUTO 0 % (0-6); Hematocrit 33.3 % (33.0-51.0); Hemoglobin 10.8 g/dL (11.5-16.0); IMMATURE GRAN ABSOLUTE AUTO 0.03 K/mm3 (0.00-0.10); IMMATURE GRAN PERCENT AUTO 1 % (0-1); LYMPHOCYTES ABSOLUTE AUTO 0.73 K/mm3 (0.84-5.20); LYMPHOCYTES PERCENT AUTO 12 % (21-46); MONOCYTES ABSOLUTE AUTO 0.34 K/mm3 (0.16-1.47); MONOCYTES PERCENT AUTO 6 % (4-13); Mean Corpuscular HGB 30.8 pg (26.0-34.0); Mean Corpuscular HGB Conc 32.4 g/dL (31.5-36.5); Mean Corpuscular Volume 95 fL (80-100); Mean Platelet Volume 11.1 fL (9.1-12.4); NEUTROPHILS ABSOLUTE AUTO 4.75 K/mm3 (1.96-9.15); NEUTROPHILS PERCENT AUTO 81 % (41-73); NRBC ABSOLUTE 0.02 K/mm3 (0.00-0.02); NRBC Auto 0.3 /100 WBC (0.0-0.2); Platelet Count 238 K/mm3 (150-400); RDW Coefficient Variation 14.8 % (11.7-14.2); RDW Standard Deviation 50.3 fL (35.1-46.3); Red Blood Cell Count 3.51 M/mm3 (3.80-5.20); White Blood Cell Count 5.88 K/mm3 (4.00-11.30)
[2021-10-19 15:34] LABS: Albumin, Blood 3.3 g/dL (3.4-5.0); Albumin/Globulin Ratio 0.9 (0.8-1.8); Bun/Creatinine Ratio 44.5 (12.0-20.0); Calcium, Blood 8.1 mg/dL (8.5-10.1); Creatinine, Blood 1.82 mg/dL (0.40-1.00); Globulin, Blood 3.6 g/dL (2.2-4.0); Magnesium, Blood 2.7 mg/dL (1.6-2.4); Potassium, Blood 5.6 mmol/L (3.5-5.5); Total Protein, Blood 6.9 g/dL (6.4-8.2); Troponin I 0.054 ng/mL (0.000-0.040)
[2021-10-19 16:04] LABS: Influenza A, PCR NEGATIVE (NEGATIVE); Influenza B, PCR NEGATIVE (NEGATIVE); Resp Syncytial Virus, PCR NEGATIVE (NEGATIVE); SARS-Cov-2 (COVID-19) PCR, MMC NEGATIVE (NEGATIVE)
[2021-10-19 18:56] LABS: Base Excess Venous -5.7 mmol/L; Bicarbonate Venous 19.1 mmol/L (24.0-30.0); PCO2 Venous 51.7 mmHg (38-42); pH Blood Venous 7.23 (7.34-7.37)
--- NOTE | 2021-10-20 01:02 | NUR ---
PT AOX2 AND ARRIVED AT 2117 VIA HOSPITAL BED ON THE UNIT. PT ABLE TO TRANSFER SELF TO NEW BED WITH EASE. PT HAS 2+ EDEMA TO BLE WITH BRRISES WELL. PT HAS SCATTERED BRUISES TO BUE WELL AND VERY FLAKY DRY SKIN. PT HAD SOME REDNESS TO COCCYX AREA BUT NO OPEN WOUNDS. PT VERY SOB AND NEW ORDERS OBTAINED, RT INCREASED O2 TO 5L TO MAINTAIN O2 IN HIGH 90s. PT STILL C/O SOB AND PAIN, MEDICATED PER EMAR AND RT NOTIFIED. WILL CONTINUE TO MONITOR FOR ANY CHANGES.
--- NOTE | 2021-10-20 02:08 | NUR ---
PT CONFUSED AND PULLING OFF TELE, O2 AND ATTEMPTING TO PULL ON IV. HARD TO REDIRECT AND BED ALARM ON PT STILL GETS OUT OF BED. PT NOT ORIENTED TO LOCATION KEEPS STATING, "I SLEEP BETTER IN MY LAZY BOY AND I JUST NEED TO WALKIN THERE!" THIS NURSE AND STAFF HAS BEEN PRESENT IN ROOM TRYING TO REDIRECT PT FOR SAFETY. ONCALL NOTIFIED AND NEW ORDERS IN PLACE PER EMAR.
[2021-10-20 02:33] LABS: BASOPHILS ABSOLUTE AUTO 0.01 K/mm3 (0.00-0.23); BASOPHILS PERCENT AUTO 0 % (0-2); EOSINOPHILS ABSOLUTE AUTO 0.01 K/mm3 (0.00-0.68); EOSINOPHILS PERCENT AUTO 0 % (0-6); Hematocrit 33.1 % (33.0-51.0); Hemoglobin 10.7 g/dL (11.5-16.0); IMMATURE GRAN ABSOLUTE AUTO 0.03 K/mm3 (0.00-0.10); IMMATURE GRAN PERCENT AUTO 1 % (0-1); LYMPHOCYTES ABSOLUTE AUTO 0.55 K/mm3 (0.84-5.20); LYMPHOCYTES PERCENT AUTO 9 % (21-46); MONOCYTES ABSOLUTE AUTO 0.59 K/mm3 (0.16-1.47); MONOCYTES PERCENT AUTO 10 % (4-13); Mean Corpuscular HGB 30.3 pg (26.0-34.0); Mean Corpuscular HGB Conc 32.3 g/dL (31.5-36.5); Mean Corpuscular Volume 94 fL (80-100); NEUTROPHILS ABSOLUTE AUTO 4.87 K/mm3 (1.96-9.15); NEUTROPHILS PERCENT AUTO 80 % (41-73); Platelet Count 200 K/mm3 (150-400); RDW Coefficient Variation 14.9 % (11.7-14.2); RDW Standard Deviation 49.5 fL (35.1-46.3); Red Blood Cell Count 3.53 M/mm3 (3.80-5.20); White Blood Cell Count 6.06 K/mm3 (4.00-11.30)
[2021-10-20 02:55] LABS: Albumin, Blood 3.5 g/dL (3.4-5.0); Bilirubin, Total 1.1 mg/dL (0.1-1.0); Bun/Creatinine Ratio 41.7 (12.0-20.0); Creatinine, Blood 2.11 mg/dL (0.40-1.00); Globulin, Blood 3.5 g/dL (2.2-4.0); Magnesium, Blood 2.7 mg/dL (1.6-2.4); Potassium, Blood 5.1 mmol/L (3.5-5.5); Troponin I 0.073 ng/mL (0.000-0.040)
--- NOTE | 2021-10-20 06:41 | NUR ---
SHIFT SUMMARY PT AOX2 AT TIMES AND VERY CONFUSED ABOUT LOCATION/EVENT AT TIMES. PT C/O OF PAIN "ALL OVER," AND VERY RESTLESS PLUS SOB. PT HAS PULLED OFF TELE MULTIPLE TIMES WELL O2 THIS SHIFT. TELE SHOWED BUNDLE BRANCH FIRST DEGREE DROPPING LOW 48 THIS SHIFT. CONTINOUS O2 MONITOR AND TELE IN PLACE, PT VERY UPSET ABOUT BOUT. PT MEDICATED PER EMAR AND HAS NOT RESTED ALL SHIFT, BED ALARM IN PLACE. PT REFUSES TO USE BEDSIDE BUT ONE PERSON ASSIST TO RESTROOM, WILL CONTINUE TO MONITOR UNTIL REPORT IS GIVEN.
--- NOTE | 2021-10-20 18:35 | NUR ---
SHIFT SUMMARY PT VERY CONFUSED MOST OF THE SHIFT. UNSURE OF WHY SHE IS HERE OR WHERE SHE IS AT TIMES. PT NON-COMPLIANT WITH WEARING HER O2 AND OFTEN TRYS TO TAKE IT OFF. IMPULSIVE AND DOESNT UNDERSTAND WHY SHE NEEDS TO CALL FOR HELP BEFORE GETTING OUT OF BED. PT HAS C/O SOB T/O THE DAY. RT CALLED FOR A BREATHING TREATMENT ONCE. PT TRIPODS ON AND OFF. POOR URINE OUTPUT. BLADDER SCANNED WITH 0ML. THIS WAS REPORTED TO DR. FLOYD THIS AM & DIURETICS WERE CHANGED TO BUMEX. ONE DOSE OF BUMEX GIVEN AND PT HAS STILL ONLY HAD 275 ML OF URINE ALL SHIFT. DR. FLOYD AGAIN NOTIFIED OF THE POOR URINE PRODUCTION. PALLIATIVE CARE NOTIFIED OF PTS CASE. NO OTHER ACUTE CHANGES IN ASSESSMENT AT THIS TIME. PT REFUSES TO HAVE LEGS ELEVATED ON PILLOWS. NO OTHER ACUTE CHANGES IN ASSESSMENT AT THIS TIME. VS REVIEWED. PT RESTING IN BED. CALL LIGHT IN REACH.
[2021-10-21 04:42] LABS: BASOPHILS ABSOLUTE AUTO 0.01 K/mm3 (0.00-0.23); BASOPHILS PERCENT AUTO 0 % (0-2); EOSINOPHILS ABSOLUTE AUTO 0.03 K/mm3 (0.00-0.68); EOSINOPHILS PERCENT AUTO 1 % (0-6); Hematocrit 32.8 % (33.0-51.0); Hemoglobin 10.5 g/dL (11.5-16.0); IMMATURE GRAN ABSOLUTE AUTO 0.05 K/mm3 (0.00-0.10); IMMATURE GRAN PERCENT AUTO 1 % (0-1); LYMPHOCYTES ABSOLUTE AUTO 0.36 K/mm3 (0.84-5.20); LYMPHOCYTES PERCENT AUTO 6 % (21-46); MONOCYTES PERCENT AUTO 7 % (4-13); Mean Corpuscular HGB 30.3 pg (26.0-34.0); Mean Corpuscular Volume 95 fL (80-100); Mean Platelet Volume 11.3 fL (9.1-12.4); NEUTROPHILS ABSOLUTE AUTO 4.79 K/mm3 (1.96-9.15); NEUTROPHILS PERCENT AUTO 85 % (41-73); Platelet Count 171 K/mm3 (150-400); RDW Coefficient Variation 14.9 % (11.7-14.2); Red Blood Cell Count 3.46 M/mm3 (3.80-5.20); White Blood Cell Count 5.64 K/mm3 (4.00-11.30)
[2021-10-21 05:50] LABS: Calcium, Blood 8.9 mg/dL (8.5-10.1); Creatinine, Blood 2.18 mg/dL (0.40-1.00); Potassium, Blood 4.3 mmol/L (3.5-5.5)
--- NOTE | 2021-10-21 06:18 | NUR ---
SHIFT SUMMARY PT AOX1 AND VERY RESTLESS/CONFUSED THIS SHIFT. PT MEDICATED PER EMAR AND HAS NOT RESTED THIS SHIFT. PT PULLED OUT IV, PULLED OFF TELE AND 02 SEVERAL TIMES WHILE CURSING AT STAFF AND GETTING UP UNSTEADY. BED ALARM IN PLACE AND PT NOT ABLE TO BE REDIRECTED THIS SHIFT. PT HAS WATER AND SNACKS AT BED SIDE, RESTRAINTS DOCUMENTED PER INTERVENTIONS. PT CURRENTLY UTILIZING BEDSIDE TOILET AND THIS NURSE WILL ASSIST THE PT BACK IN BED. WILL CONTINUE TO MONITOR UNTIL REPORT IS GIVEN.
--- NOTE | 2021-10-21 13:43 | NUR ---
Patient demanding to get up to go into the bathroom, pulled IV out, cath intact. Assisted to bathroom with 2 person stand by assist for safety. Patient settled back in recliner per request. Allows oxygen to be replaced after back to chair. Chair alarm armed. Patient adamantly refusing to allow night monitor to be replaced, states she isn't going to do anything about her heart so she doesn't need the monitor on. RN aware, awaiting palliative care visit.
--- NOTE | 2021-10-21 16:44 | NUR ---
SHIFT SUMMARY/COMFORT CARE PT TRANSITIONED TO COMFORT CARE THIS SHIFT. TELE & CONT PULSE OX REMOVED. REFERRAL FOR HOSPICE PLACED. PT ASKING TO LEAVE CONTINUOUSLY. PT THREATENING AT TIMES TODAY, HOLDING HER FIST UP TO MUTIPLE STAFF MEMBERS TODAY. PT REMINDED SHE CANNOT HIT STAFF, AND REORIENTED ABLE. WRIST RESTRAINTS REMOVED THIS AM. MARIO REMAINS IN PLACE FOR SAFETY. PT IS IMPULSIVE AND UNSTEADY. PT TRIES TO WALK OUT OF THE ROOM WHEN STAFF IS TAKING HER TO THE BATHROOM. PT CURRENTLY UP IN RECLINER. CALL LIGHT IN REACH.
--- NOTE | 2021-10-21 17:50 | NUR ---
Review of pt lack of response to diuresis and wnting treatment with nursing and pysicians. Pt iw well known to this advertising writer and shows great decline from last admission. She discharged from hospice almost a year ago due to palliation of air hunger she improved. Slow and carfule conversation with patient to confirm comprehension of details of conversation. She agreed to retuning to hospice so she could stay out of hospital was very amendable to her. Notified Ralph and he came in with her dog. Ralph reviewed with her hos the past few month were very difficult because of her lose of ambulation. She was unable to take the dog out and the pet was forced to defecate in the house. Theresa relaized this was a poor life for her beloved pet and gave him to ralph. Ralph would bring the dog for visits and encouraged placement. With this crurrent hospitaliztion she is now willing to go to [facility] and wants to just be comfortable she verbalizes to much suffering. Updated physician and care manger. Comfort orders placed as per pt wishes. Care manger will find placement where dog can visit. Will contiue to follow for symptoms ain particular air hunger.
--- NOTE | 2021-10-21 21:47 | NUR ---
PT WAS ASLEEP AT THE START OF THE SHIFT IN RECLINER WITH O2 IN PLACE AND NOT SOILED WITH FRESH WATER ON THE TABLE.
--- NOTE | 2021-10-21 22:22 | NUR ---
PT UPSET AND DROWSY UNABLE TO WALK TO THE "REAL TOILET" REFUSING TO USE THE BEDSIDE DIRECTLY BEHIND THE PT. THE PT URINATED ON THE FLOOR INSTEAD SITTING ON THE BEDSIDE. PT CLEANED AND SITTING IN THE RECLINER WITH LEGS ELEVATED, DENIES ANY OTHER NEEDS AT THE MOMENT. THIS NURSE WILL CONTINUE TO MONITOR AND DOCUMENT ON RESTRAINTS PER INTERVENTIONS THIS SHIFT.
--- NOTE | 2021-10-22 02:52 | NUR ---
PT AGITATED AND UPSET ABOUT NOT BEING ABLE TO WALK TO RESTROOM, REFUSING TO USE BEDSIDE TOILET EACH TIME STAFF ATTEMPTS. PT SWINING AT STAFF AND CURSING DURING CLEANING. PT REPOSITIONED AND SAT BACK IN THE RECLINER TO KEEP LEGS ELEVATED. WILL CONTINUE TO MONITOR.
--- NOTE | 2021-10-22 03:01 | NUR ---
PT STILL AGITATED AFTER BEING MEDICATED PER EMAR BUT BREATHING IS MUCH BETTER. PT OFFERED WATER AND SNACKS BUT REFUSED AND DENIES NEEDING TO USE THE RESTROOM. PT STILL CONFUSED YELLING, "I NEED TO LET MY DOGS OUT SO GET ALL THESE DAMN PEOPLE OUT OF MY HOUSE NOW!" PT HARD TO REDIRECT AND CONTINUES TO SWING AT STAFF WHEN TRYING TO ASSIST WITH TOILETING. NEW ORDER FOR RENEWAL OF SAFETY VEST TO PREVENT FALLS OR OTHER SAFETY CONCERNS WITH THE PT. WILL CONTINUE TO MONITOR.
--- NOTE | 2021-10-22 04:43 | NUR ---
SHIFT SUMMARY PT AOX1 AND WAS ASLEEP AT THE START OF THIS SHIFT. PT WOKE UP AND STILL HAS A FREQUENT FEELING OF URINATION BUT BARELY VOIDS 20ML IF ANY. PT BECAME COMBATIVE WITH STAFF TWICE THIS SHIFT AND NEW OREDER FOR VEST IN PLACE FOR UNSTEADY GAIT/INCREASED CONFUSION. PT CURRENTLY IN THE CHAIR CONFUSED ABOUT LOCATION, WILL CONTINUE TO MONITOR UNTIL REPORT IS GIVEN.
--- NOTE | 2021-10-22 06:31 | NUR ---
PT FINALLY ABLE TO REST IN THE CHAIR WITH LEGS ELEVATED WITH A PILLOW FOR MORE SUPPORT. PT HAS NO S/S OF DISTRESS AND THIS NURSE WILL CONTINUE TO MONITOR UNTIL REPORT IS GIVEN.
--- NOTE | 2021-10-22 17:57 | NUR ---
SHIFT SUMMARY PT SITTING UP TO EOB AT START OF SHIFT, LEANING OVER. PT DROWSY AND LETHARGIC. UP TO RECLINER FOR BREAKFAST, BUT DID NOT EAT MUCH AT ALL. PT LATER BACK TO BED. UP TO BSC TO VOID NEEDED; 2P ASSIST. PT ON COMFORT CARE. HENNA HERE TODAY TO OBTAIN NEEDED PAPERWORK AND LATER RETURNED WITH OBTAINED DOCUMENTS. EDUCATIONAL SPECIALIST NOTIFIED. HENNA'S LATER IN TO SEE PT WELL. PT SLEEPING MOST OF DAY, VERY DROWSY AND NOT WANTING TO EAT ANYTHING. DR HESTER AND DR FLOYD IN TO SEE PT THIS AM. PT DENIED NEEDS. BLE'S VERY SWOLLEN AND RED. CALL LT IN REACH. BED ALARM ON FOR SAFETY.
--- NOTE | 2021-10-22 22:55 | NUR ---
PT WAS ASLEEP IN BED AT THE START OF THIS SHIFT AND WOKE UP DURING HS MEDS. PT SAT ON BEDSIDE TOILET BUT COULD NOT VOID AND REQUESTED APPLE JUCIE WITH MEDS. PT WAS ANXIOUS AND CONFUSED ABOUT LOCATION BUT WAS REDIRECTED. PT MEDICATED PER EMAR AND ABLE TO RELAX. PT HELPED BACK TO BED WITH PILLOWS TO ELEVATE LEGS AND HOB ELEVATED TO HELP WITH SOB. WILL CONTINUE TO MONITOR FOR ANY CHANGES THIS SHIFT.
--- NOTE | 2021-10-23 | NUR ---
PT ASLEEP WITH RISE AND FALL OF CHEST NO S/S OF DISTRESS WILL CONTINUE TO MONITOR.
--- NOTE | 2021-10-23 03:23 | NUR ---
PT HAS RATTLING BREATHING AND GASPING FOR AIR WITH INCREASED HALLUCINATIONS. PT MEDICATED PER EMAR AND O2 WAS LOW 75% ON RA BUT ONCE RT APPLIED O2 AT 4L IT INCREASED TO 88%. THIS NURSE ELEVATED PT HEAD WITH TWO PILLOWS AND THE O2 WAS NOW 95 ON 2L OF O2. PT NO LONGER PALE IN THE FACE BUT RATTLING BREATHING STILL PRESENT. NO MORE FACIAL GRIMMACES ONCE O2 AND MEDICATION WAS GIVEN. WILL CONTINUE TO MONITOR FOR ANY CHANGES.
--- NOTE | 2021-10-23 05:03 | NUR ---
SHIFT SUMMARY PT AOX1 AT THE START OF SHIFT ONCE AWAKE. PT WAS ABLE TO AMBULATE TO BEDSIDE TOILET WITH ONE ASSIST. NO VOID TOOK PLACE AND THE PT TOOK PO MEDS BETTER THAN LAST NIGHT. PT ALLOWED THIS NURSE TO HELP THEM IN BED AND RESTED WELL WITHOUT DISTRESS UNITL 0300. PT BEGAN GASPING WHILE TURNING PALE ON RA AND RATTLING BREATHING HEARD AT THE DOOR. PT STILL HAS CRACKLES IN BILATERAL LUNGS. PT MEDICATED PER EMAR AND WAS RESTLESS, FROWNING AND MOVING LEGS. PT STILL HAS 4+ EDEMA BLE. PT REPOSITIONED AND BRIEF CLEAN/DRY, WILL CONTINUE TO MONITOR UNTIL REPORT IS GIVEN.
--- NOTE | 2021-10-23 06:09 | NUR ---
PT NOW HAS WET GARGLING SOUND BREATHING AND EXTRA PILLOWS ADDED TO PREVENT ASPIRATION ON INCREASED SECRETIONS. PT COUGHS BUT NOT PRODUCTIVE JUST WET COUGHS AND CRACKLES STILL PRESENT. PT BRIEF STILL DRY AND NO URINE VIA BLADDER SCAN. WILL CONTINUE TO MONITOR UNTIL REPORT IS GIVEN.
--- NOTE | 2021-10-23 11:26 | NUR ---
COMFORT CARE PATIENT RESTING IN BED. BREATHING IS VERY WET AND GURGLY. ATTEMPTED TO SUCTION. VERY LITTLE SUCTIONED OUT. MEDICATED PER MAR. PATIENT LEANING TO ONE SIDE, REPOSITIONED PATIENT AND SAT UP HIGHER.
--- NOTE | 2021-10-23 11:30 | NUR ---
COMFORT CARE PATIENT BREATHING WET AND GURGLY. MEDICATED PER DEC. PATIENT RECEIVED BED BATH AND REPOSITIONED TO RIGHT SIDE. FAMILY AT BEDSIDE. ASKED PATIENT IF IN PAIN. PATIENT STATED YES. MEDICATED PER DEC. REPOSITIONED AND PLACED MEPILEX ON SACRUM AND PATIENT'S SOFT BLANKET UNDER BACK. WILL CONTINUE TO MONITOR.
--- NOTE | 2021-10-23 14:56 | NUR ---
Spoke with Lens Block Gauger Magalie and discussed case. Pt appears to be transitioning and may benefit from increased comfort care medications. Pt resting in bed with her eyes closed. Pt briefly opens her eyes to verbal stimuli then quickly closes them. Moderate secretions noted. Pt appears comfortable with no S/S of distress at this time. Palliative Care will remain available.
--- NOTE | 2021-10-23 16:02 | NUR ---
COMFORT CARE PATIENT SITTING UP RESTING WITH FAMILY AT BEDSIDE. WILL CONTINUE TO MONITOR.
--- NOTE | 2021-10-23 19:14 | NUR ---
SHIFT SUMMARY PATIENT ON COMFORT CARE. FAMILY AT BEDSIDE MOST OF SHIFT. PATIENT BREATHING WET AND GURGLY. MEDICATED PER DEC. PATIENT COMPLAINED OF PAIN X1. MEDICATED PER DEC. PATIENT RECEIVED BEDBATH TODAY. TOLERATED WELL. WILL CONTINUE TO MONITOR.
--- NOTE | 2021-10-24 05:17 | NUR ---
SHIFT SUMMARY PT REMAINS ON COMFORT MEASURE. PT WAS CHANGED AND REPOSITIONNED TOLERATED. PT ON ROOM AIR . PT WAS ASSESSED FOR COMFORT AND PAIN.PT WAS MEDICATED PER EMAR.BED IN LOWER POSITION AND CALL LIGHTIN REACH. WILL CONTINUE TO MONITOR.
--- NOTE | 2021-10-24 09:31 | NUR ---
COMFORT CARE PATIENT RESTING IN BED SOUNDING SOB. MEDICATED PATIENT PER MAR FOR AIR HUNGER. REPOSITIONED PATIENT. FAMILY AT BEDSIDE STATING SHE HAD TAKEN A SIP OF WATER FOR THEM. WILL CONTINUE TO MONITOR.
--- NOTE | 2021-10-24 12:43 | NUR ---
COMFORT CARE PATIENT RESTING COMFORTABLY WITH FAMILY AT BEDSIDE. PATIENT HAD EPISODE OF CONFUSION LOOKING FOR HER OWN PERSONAL TV REMOTE. PATIENT TOOK A FEW SIPS OF WATER. DENIES PAIN, SOB, ANXIETY,N/V. WILL CONTINUE TO MONITOR.
--- NOTE | 2021-10-24 14:44 | NUR ---
COMFORT CARE PATIENT RESTING IN BED WITH FAMILY AT BEDSIDE. PATIENT ATTENDS CHANGED AND REPOSITIONED. DENIES ANY PAIN, SOB, ANXIETY, OR N/V. WILL CONTINUE TO MONITOR.
--- NOTE | 2021-10-24 17:29 | NUR ---
COMFORT CARE PATIENT REPOSITIONED AND GIVEN MEDICATION FOR DYSPNEA. OFFERED FLUIDS. PATIENT ADAMENT ON HOLDING DRINK AND DOING IT HERSELF, ONLY TAKING A FEW SMALL SIPS. FAMILY AT BEDSIDE WITH PATIENT. WILL CONTINUE TO MONITOR.
--- NOTE | 2021-10-24 18:23 | NUR ---
COMFORT CARE PATIENT REQUESTING TO USE BEDPAN. PLACED ON BEDPAN BUT DID NOT GO. REPOSITIONED PATIENT AND OFFERED ENSURE. PATIENT AGREED TO TRY SOME BUT DID NOT DRINK ANY WHEN STRAW PLACED IN HER MOUTH.
--- NOTE | 2021-10-24 18:28 | NUR ---
SHIFT SUMMARY PATIENT ON COMFORT CARE. CHANGED AND REPOSITIONED PATIENT T/O SHIFT TOLERATED. OFFERED FLUIDS T/O SHIFT PATIENT ONLY TAKING SIPS. MEDICATED PER MAR. FAMILY AT BEDSIDE T/O SHIFT. WILL CONTINUE TO MONITOR.
--- NOTE | 2021-10-24 22:00 | NUR ---
COMFORT CARE RECIEVED REPORT FROM PREV RN. PATIENT APPEARS TO BE RESTING WITHOUT ANY NEEDS AT THIS TIME. NOTABLE SECRETIONS GIVEN ATROPINE BY PREVIOUS RN. BED IN LOWEST POSITION; ALARM ON.
== END 2021-10-25 00:50 ==
LOC: ER 14:48 → ERHOLD 14:49 → MEDS 21:17
PROVIDERS: Family Medicine; Nurse Practitioner Acute Care; Physician Assistant; ADMIT Internal Medicine
DX: I13.0 Hypertensive heart and chronic kidney disease with heart failure and stage 1 through stage 4 chronic kidney disease, or unspecified chronic kidney disease (principal); I21.A1 Myocardial infarction type 2; N17.0 Acute kidney failure with tubular necrosis; I50.23 Acute on chronic systolic (congestive) heart failure; J96.11 Chronic respiratory failure with hypoxia; R64 Cachexia; Z66 Do not resuscitate; Z51.5 Encounter for palliative care; Z20.822 Contact with and (suspected) exposure to COVID-19; I08.0 Rheumatic disorders of both mitral and aortic valves; I48.0 Paroxysmal atrial fibrillation; Z68.23 Body mass index [BMI] 23.0-23.9, adult; J44.9 Chronic obstructive pulmonary disease, unspecified; I71.2 Thoracic aortic aneurysm, without rupture; Z78.1 Physical restraint status; N18.30 Chronic kidney disease, stage 3 unspecified; I27.20 Pulmonary hypertension, unspecified; E03.9 Hypothyroidism, unspecified; E78.5 Hyperlipidemia, unspecified; F17.210 Nicotine dependence, cigarettes, uncomplicated; Z91.14 Patient's other noncompliance with medication regimen; Z88.0 Allergy status to penicillin; Z88.2 Allergy status to sulfonamides; Z99.81 Dependence on supplemental oxygen; Z79.899 Other long term (current) drug therapy; Z79.82 Long term (current) use of aspirin; Z90.89 Acquired absence of other organs; Z90.710 Acquired absence of both cervix and uterus
CPT/HCPCS: 0241U; 31720; 36415; 71045; 80048; 80053; 82803; 83605; 83735; 83880; 84145; 84443; 84484; 85025; 93005; 93010; 93308; 93321; 94640; 94760; 94762; 96365; 96372; 96375; 96376; 97110; 97162; 99285-25; A9270; G0378; J1630; J1644; J1940